=== PATIENT | male | born 2000 | race Caucasian/White ===

== ENCOUNTER 2023-06-16 14:15 | Outpatient (RCR) | payer OTHER | END 2023-06-18 | disposition home or self-care (01) | LOC: WSPT | DX: S86.811D Strain of other muscle(s) and tendon(s) at lower leg level, right leg, subsequent encounter (principal); X58.XXXD Exposure to other specified factors, subsequent encounter ==

== ENCOUNTER 2023-07-11 10:45 | Outpatient (RCR) | payer OTHER | END 2023-07-19 | disposition home or self-care (01) | LOC: WSPT | DX: S86.811D Strain of other muscle(s) and tendon(s) at lower leg level, right leg, subsequent encounter (principal); X58.XXXD Exposure to other specified factors, subsequent encounter; Z98.890 Other specified postprocedural states ==

== ENCOUNTER 2024-02-15 13:30 | Outpatient (RCR) | payer OTHER | END 2024-02-17 | disposition home or self-care (01) | LOC: WSPT | DX: M23.8X1 Other internal derangements of right knee (principal); Z98.890 Other specified postprocedural states ==